=== PATIENT | female | born 2005 | race Caucasian/White ===

== ENCOUNTER 2024-07-31 12:10 | Emergency (ER) | payer OTHER, SELFPAY ==
[2024-07-31 12:16] VITALS: BP 142/97
--- NOTE | 2024-07-31 13:07 | ED.SKININJ ---
HPI-Injury
General
Chief Complaint: Bite
Source: patient
Exam Limitations: none
Time Seen by Provider: 07/31/24 12:59
History of Present Illness-Injury
Initial Injury comments:
19-year-old female presents with bite to the right hand from her dog. Her dog was in an altercation with another dog and the patient tried a pull the dogs apart. Dogs vaccines are up-to-date. Patient's last tetanus is unknown. She notes multiple
puncture wounds to the right hand with associated pain and swelling. No deformities. Patient is healthy otherwise. No other complaints
Past History
Past History
ED Past Medical History: None
ED Past Surgical History: Orthopedic
Social History
Tobacco: Non-smoker
Alcohol: None
Drug: None
Personal: Single
Living: with family
Phy Exam
Physical Exam
Physical Exam:
General: Well-appearing female no acute respiratory distress
HEENT: Normocephalic atraumatic
Skin: Multiple puncture wounds mainly over the dorsal aspect of the right hand. There is mild soft tissue swelling surrounding them. No underlying ecchymosis. No deformity
Musculoskeletal exam: Range of motion of the fingers is limited secondary to pain in the hand
Course
Orders/Labs/Results
Orders:
Orders
07/31/24 13:06
Amoxicillin 875 mg/Clav 125 mg [Augmentin 875 mg/125 mg] 1 tablet PO NOW STA
Tetanus/Diphth/Acelpertussis [Adacel] 0.5 ml IM .ONCE ONE
CR Hand - Right Min 3 Views Urgent
Comment:
Reason For Exam: bite
07/31/24 14:01
Acetaminophen [Tylenol] 650 mg PO NOW STA
Vital Signs
Initial and Last Documented VS:
Initial Vital Signs
Temp Pulse Resp BP Pulse Ox
97.8 F 121 20 142/97 100
07/31/24 12:16 07/31/24 12:16 07/31/24 12:16 07/31/24 12:16 07/31/24 12:16
Last Documented Vital Signs
Temp Pulse Resp BP Pulse Ox
97.8 F 121 20 142/97 100
07/31/24 12:16 07/31/24 12:16 07/31/24 12:16 07/31/24 12:16 07/31/24 12:16
MDM/Problems Addressed
Differential Diagnosis Includes:
Bite to the right hand. Will update tetanus today x-ray pending to evaluate for under lying fracture. Will start Augmentin
*Critical Care Note
Total Time (30-74mins, 75-104mins- exclusive of procedures): Not Applicable
Update Note
Update Note:
X-ray negative for fracture. Patient reassured. The hand was cleaned Androcur ointment and gauze dressing was applied. Augmentin started. Stable for discharge
ED Attending Note
-
Portions of this chart may have been created with voice recognition software.� Occasional wrong word or��sound alike� substitutions may have occurred due to the inherent limitations of voice recognition software.
Discharge Plan
Departure
Patient Disposition: Home (Routine Discharge)
Date of Disposition: 07/31/24
Time of Disposition: 14:21
Patient with high blood pressure during this ER visit?: No
Discharge Problem:
Dog bite
Instructions: Wound Care (DC)
Prescriptions:
New
amoxicillin-pot clavulanate 875-125 mg tablet
1 tab PO BID Qty: 14 0RF
No Action
Advil Dual Action 125-250 mg Tablet
2 tab PO Q8H PRN (Reason: mild pain)
doxycycline hyclate 100 mg Capsule
100 mg PO Q12 14 Days Qty: 28 0RF
Referrals:
Iván Fields DO [Family Provider, Family Practice]
Activity Restrictions/Additional Instructions:
Use ibuprofen and Tylenol for pain. Use Augmentin as directed. Return if worse otherwise follow-up with your doctor
Interventions
Interventions:
*Risk Screen - Suicide Last Done: 07/31/24 12:16
*General Assessment Last Done: 07/31/24 13:45
*Neglect/Abuse Screening Last Done: 07/31/24 12:16
*ED- Fall Risk Assessment Last Done: 07/31/24 13:45
*ED COVID-19 Vaccine History Last Done: 07/31/24 13:45
ED-Skin Assessment Last Done: 07/31/24 13:45
Discharge Date and Time
Print Language: BRAZILIAN
[2024-07-31] MEDS: ADACEL 0.5 ML IM (13:27)
[2024-07-31] MEDS: AUGMENTIN 875 MG/125 MG 1 TABLET PO (13:28)
[2024-07-31] MEDS: TYLENOL 650 MG PO (14:24)
== END 2024-07-31 14:40 | disposition home or self-care (01) ==
LOC: EMR 12:10
PROVIDERS: EMERGENCY PHYSICIAN Emergency Medicine; FAMILY PHYSICIAN Family Medicine
DX: S61.451A Open bite of right hand, initial encounter (principal); W54.0XXA Bitten by dog, initial encounter; Z23 Encounter for immunization
CPT/HCPCS: 99283; 90471; 73130; 90715